=== PATIENT | female | born 1945 | race Caucasian/White ===

== ENCOUNTER 2017-08-16 12:41 | Day surgery (SDC) | payer MEDICARE ==
[~2017-08-16 12:41] MED LIST: ATOR40TA49 PO; AZOR5TAB4 PO; CLON.1 PO; LOMO PO; LORTA5 PO; METO50TA PO; PROM25SU8 PR; RANI150 PO
[2017-08-16 13:15] VITALS: BP 178/84; PULSE 115; RESP 20; TEMP 97.7; O2SAT 97
[2017-08-16] MEDS ORDERED: CLON0.1T PO (13:26)
[2017-08-16] MEDS ORDERED: LOMO2.5T PO (13:26)
[2017-08-16] MEDS ORDERED: PROM25TA10 PO (13:26)
[2017-08-16] MEDS ORDERED: SODIUM CHLORIDE 0.9% FLUSH 10 ML FLUSH IVF PRN ×2 (14:45)
--- NOTE | 2017-08-16 14:45 | PD.RAD ---
Post Procedure Progress Note Pre Procedure Diagnosis: (1) Cancer of rectosigmoid (colon) Post Procedure Diagnosis: (1) Cancer of rectosigmoid (colon) Procedure Date: Aug 16, 2017 Supervising Radiologist: Socrates Bravo Anesthesia: Local Plan of Activity Patient to Unit: ROPU Patient Condition: Good Additional Comments: Picc placed without difficulty Catheter length 40cm See PACS Report for procedural detail/treatment Socrates Bravo MD Aug 16, 2017 14:45
--- NOTE | 2017-08-16 14:58 | RADRPT ---
EXAM DATE/TIME: 08/16/2017 15:42 [facility] COMPARISON: PICC LINE INSERTION,POWER W/FL&US, March 29, 2015, 12:08. INDICATIONS : Patient presents with colon cancer in need of peripheral intravenous line placement for medication ad ministration. MEDICAL HISTORY : Colon mass SURGICAL HISTORY : Hysterectomy Elise Appy ENCOUNTER: Initial ACUITY: 1 day PAIN SCORE: 0/10 LOCATION: N/A FLUORO TIME: 0.1 minutes IMAGE SERIES: 0 ACCESS: Right basilic vein MEDICATION(S): 1.) 200 units Heparin IV DEVICE(S): 1.) 4 Romanian cm PROCEDURE : 1. Ultrasound guidance for venous catheterization. 2. Fluoroscopic guidance. 3. Ultrasound & fluoroscopic guided central venous Power PICC line placement. The risks, benefits and alternatives to the procedure were explained and verbal and written consent w as obtained. The site was prepped in sterile fashion. Full sterile technique was used, including ca p, mask, sterile gloves and gown and a large sterile sheet. Hand hygiene and 2% chlorhexidine prep w as utilized per protocol for cutaneous antisepsis with appropriate dry time for site. Sterile gel a nd sterile probe cover were utilized for ultrasound guidance. The skin and subcutaneous tissues wer e infiltrated with local anesthetic solution. Under direct ultrasound guidance, a suitable vein was accessed and a measuring guidewire was introduc ed and positioned in the central venous system. The ultrasound images depicting access guidance were saved and stored to PACS for permanent record. A Power Injectable PICC line was cut to prescribed length and introduced, positioned with tip at the cavoatrial junction level. The line was flushed and secured per protocol. CONCLUSION: 1. Uncomplicated central venous Power PICC line placement via the right basilic vein. 2. The PICC line can be used immediately. Socrates Bravo MD on August 16, 2017 at 14:54 Board Certified Radiologist. This report was verified electronically.
[2017-08-16 15:20] VITALS: BP 213/100; PULSE 42; RESP 20; TEMP 98; O2SAT 96
[2017-08-17] MEDS ORDERED: SODIUM CHLORIDE 0.9% FLUSH 10 ML FLUSH IVF SCH (09:00)
== END 2017-08-16 15:20 | disposition home or self-care (01) ==
LOC: HROP 12:41 → HRIP 12:42 → HROP 15:20
PROVIDERS: ATTEND Internal Medicine Gastroenterology
DX: C19 Malignant neoplasm of rectosigmoid junction (principal); K58.9 Irritable bowel syndrome, unspecified; R10.13 Epigastric pain; R68.81 Early satiety; R11.0 Nausea
CPT/HCPCS: 36569; 76937; 77001; C1751; J1642

== ENCOUNTER → 2017-08-18 | Outpatient (CLI) | payer MEDICARE ==
[~2017-08-18] MED LIST changes: -ATOR40TA49 PO; -AZOR5TAB4 PO; -CLON.1 PO; +CLON0.1T PO; -LOMO PO; +LOMO2.5T PO; -LORTA5 PO; -METO50TA PO; -PROM25SU8 PR; +PROM25TA10 PO; -RANI150 PO
== END ==
LOC: CLAB 10:55
PROVIDERS: ATTEND Internal Medicine Gastroenterology
DX: Z85.038 Personal history of other malignant neoplasm of large intestine (principal)
CPT/HCPCS: 36415; 82378